=== PATIENT | female | born 1975 | race Caucasian/White ===

== ENCOUNTER 2019-04-05 12:56 | Emergency (ER) | payer OTHER ==
[~2019-04-05] VITALS: Ht 162.6 cm; Wt 108.9 kg
[2019-04-05 12:56] VITALS: BP 179/100
[~2019-04-05 12:56] MED LIST: CIPROFLOXACIN500 M1 PO; FLAGYL500 MG PO; NORCO 5-325 TA1 EACH PO; SPRINTEC1 EACH PO
[2019-04-05] MEDS ORDERED: ZYRTEC10 M5 PO (13:30)
[2019-04-05] MEDS ORDERED: SERTRALINE HCL50 MG PO (13:31)
[2019-04-05] MEDS ORDERED: MOBIC15 MG PO (14:35)
== END 2019-04-05 14:59 | disposition home or self-care (01) ==
LOC: ER 12:56
DX: M79.671 Pain in right foot (principal); Z88.1 Allergy status to other antibiotic agents

== ENCOUNTER 2019-10-21 03:49 | Emergency (ER) | payer OTHER ==
[~2019-10-21] VITALS: Ht 162.6 cm; Wt 97.5 kg
[~2019-10-21 03:49] MED LIST changes: +MOBIC15 MG PO; +SERTRALINE HCL50 MG PO; +ZYRTEC10 M5 PO
[2019-10-21 04:30] VITALS: BP 122/104
== END 2019-10-21 05:08 | disposition home or self-care (01) ==
LOC: ER 03:49
DX: F10.929 Alcohol use, unspecified with intoxication, unspecified (principal); Z88.1 Allergy status to other antibiotic agents; Z88.8 Allergy status to other drugs, medicaments and biological substances; Z79.899 Other long term (current) drug therapy; Y90.9 Presence of alcohol in blood, level not specified

== ENCOUNTER 2022-01-11 10:50 | Emergency (ER) | payer OTHER ==
[~2022-01-11] VITALS: Ht 162.6 cm; Wt 122.5 kg
[2022-01-11] MEDS ORDERED: XANAX 0.5 MG0.5 M1 PO (12:00)
[2022-01-11] MEDS ORDERED: ZOFRAN ODT4 MG PO (12:00)
[2022-01-11 12:06] VITALS: BP 162/95
== END 2022-01-11 12:12 | disposition home or self-care (01) ==
LOC: ER 10:50
DX: R06.4 Hyperventilation (principal); Z79.899 Other long term (current) drug therapy; Z88.2 Allergy status to sulfonamides